=== PATIENT | male | born 1985 | race Caucasian/White ===

== ENCOUNTER 2017-06-15 14:10 | Day surgery (SDC) | payer BC, OTHER ==
[~2017-06-15 14:10] MED LIST: oxyCODONE IR 5 MG TAB PO SCH
--- NOTE | 2017-06-15 14:49 | EDPHY ---
H & P Stated Complaint: deformity l clavicle Time Seen by Provider: 06/15/17 14:49 - Personal History Current Tetanus/Diphtheria Vaccine: No - Medical/Surgical History Hx Asthma: No Hx Chronic Respiratory Disease: No Hx Diabetes: No Hx Cardiac Disease: No Hx Renal Disease: No Hx Cirrhosis: No Hx Alcoholism: No Hx HIV/AIDS: No Hx Splenectomy or Spleen Trauma: No Other PMH: sleep apnea - Social History Smoking Status: Never smoked Constitutional: Initial Vital Signs Temperature (C) 36.7 C 06/15/17 14:19 Heart Rate 84 06/15/17 14:19 Respiratory Rate 16 06/15/17 14:19 Blood Pressure 104/90 H 06/15/17 14:19 O2 Sat (%) 94 06/15/17 14:19 O2 Delivery Mode Room Air Allergies/Adverse Reactions: No Known Allergies Allergy (Unverified 06/15/17 14:19) Home Medications: Medication Instructions Recorded HYDROcodone/APAP 10325 [Big [place] 1 - 2 each PO Q4-6PRN PRN #20 tab 06/15/17 10/325] Medical Decision Making - Diagnostics Imaging: I viewed and interpreted images myself ED Course/Re-evaluation: CHIEF COMPLAINT: Left clavicle injury HISTORY OF PRESENT ILLNESS: The patient is a 31 y/o male complaining of left clavicle pain secondary to "running into a dude that was bigger than me" while playing soccer this afternoon. He has previously broken this clavicle and the right clavicle. He denies head strike, weakness, paresthesias, neck or back pain , dyspnea, or any other injuries from the impact. He is normally healthy. He has not eaten anything today. No anticoagulants. REVIEW OF SYSTEMS: A 10 point review of systems was performed and is negative with the exception of the elements mentioned in the history of present illness. PHYSICAL EXAM: HR, BP, O2 Sat, RR. Temp noted General Appearance: Alert, well hydrated, appropriate, and non-toxic appearing. Head: Atraumatic without scalp tenderness or obvious injury Eyes: Pupils equal, round, reactive to light and accommodation, EOMI, no trauma , no injection. Nose: Atraumatic, no rhinorrhea, clear. Throat: Mucus membranes moist. Neck: Supple,nontender, no lymphadenopathy. Respiratory: No retractions, no distress, no wheezes, and no accessory muscle use. Lungs are clear to auscultation bilaterally. Cardiovascular: Regular rate and rhythm, no murmurs, rubs, or gallops. Left radial pulse intact. Good capillary refill all extremities. Gastrointestinal: Abdomen is soft, nontender, non-distended, no masses, no rebound, no guarding, no peritoneal signs. Musculoskeletal: Tenting of skin over left clavicle with crepitus and tenderness, no blanching of skin or evidence of ischemia. Otherwise normal active ROM of all extremities, atraumatic. Neurological: Alert, appropriate, and interactive. The patient has non-focal cranial nerves, motor, sensory, and cerebellar exam. Skin: No rashes, good turgor, no nodules on palpation. Past medical history: Prior clavicle fractures bilaterally Past surgical history: Right clavicle repair in [place] Family history: Noncontributory Social history: Moved here from [place] last year. [employer] student. DIAGNOSTICS/PROCEDURES/CRITICAL CARE TIME: Left clavicle x-ray: comminuted fracture of left clavicle DIFFERENTIAL DIAGNOSIS: The differential diagnosis for the patient's trauma included but was not limited to left clavicle fracture, intracranial injury, long bone and pelvic bone fractures, spinal injury, intra-abdominal injury, and intra-thoracic injury. MEDICAL DECISION MAKING: This is a healthy 31 y/o male with prior clavicle injuries who presents with isolated injury to his left clavicle secondary to a collision while playing soccer this afternoon. He has tenting of the skin over his left clavicle with ecchymosis, crepitus, and tenderness, but no abrasion, laceration, evidence of open fracture or ischemia. He is neurovascularly intact. Plan to treat with [place], ibuprofen, sling, and ortho follow up. 1502: Consulted with Dr. Pacheco, orthopedist. He will take patient to surgery today and will call the OR to determine timeline. Plan for IV, labs, 1mg IV Dilaudid. NPO status maintained. Departure - Departure Disposition: [facility] Acute Clinical Impression: Fracture of clavicle, left, closed Qualifiers: Encounter type: initial encounter Clavicle location: shaft Fracture alignment: displaced Qualified Code(s): S42.022A - Displaced fracture of shaft of left clavicle, initial encounter for closed fracture Condition: Good Instructions: Clavicle Fracture (ED) Additional Instructions: 1. Take 800mg ibuprofen every 8 hours as directed for pain and inflammation over the next few days. 2. Take [place] as prescribed when needed for severe pain. This medication can make you drowsy. Do not use while driving. 3. Wear sling for splinting and comfort. Apply ice to sore areas over the next 24-48 hours. 4. Follow up with orthopedist in the next week. I recommend calling first thing tomorrow morning to schedule this appointment. 5. Return to the ED for any worsening of condition. Referrals: Angel Luis Pacheco MD [Medical Doctor] - As per Instructions Report Scribed for: Pb Cheung Report Scribed by: Victoria Bedoya Date of Report: 06/15/17 Time of Report: 14:57
[2017-06-15] MEDS ORDERED: HYDROmorphONE/DILAUDID 2 MG/ML INJ IVP ONE (15:03)
[2017-06-15 15:24] LABS: PLATELET COUNT 282 10^3/uL (150-400)
[2017-06-15] MEDS ORDERED: BUPIVACAINE/EPI 0.5% 30 ML SDV ONE (15:25)
[2017-06-15] MEDS ORDERED: ceFAZolin 2 GM/DEXTROSE 100 ML IV ONE (16:16)
[2017-06-15] MEDS ORDERED: MIDAZOLAM 2 MG/2 ML VIAL IVP ONE (16:25)
--- NOTE | 2017-06-15 16:25 | PDANEPAE ---
ANE History of Present Illness traumatic clavicle fx here for ORIF ANE Past Medical History - Cardiovascular History Hx Hypertension: No Hx Arrhythmias: No - Pulmonary History Hx Oxygen in Use at Home: No Hx Sleep Apnea: Yes - Endocrine History Hx Diabetes: No ANE Review of Systems Review of Systems: - Exercise capacity Exercise capacity: >=4 METS ANE Patient History - Allergies Allergies/Adverse Reactions: No Known Allergies Allergy (Unverified 06/15/17 14:19) - NPO status NPO Since - Liquids (Date): 06/15/17 NPO Since - Liquids (Time): 13:00 NPO Since - Solids (Date): 06/14/17 NPO Since - Solids (Time): 17:00 - Anes Hx Anes Hx: no prior problems - Smoking Hx Smoking Status: Never smoked - Alcohol Use Alcohol Use: None - Family Anes Hx Family Anes Hx: none ANE Labs/Vital Signs - Labs Result Diagrams: 06/15/17 15:10 06/15/17 15:10 - Vital Signs Blood Pressure: 104/90 Heart Rate: 84 Respiratory Rate: 16 O2 Sat (%): 94 Height: 177.8 cm Weight: 72.575 kg ANE Physical Exam - Airway Neck exam: FROM Mallampati Score: Class 2 Mouth exam: jenkins - Pulmonary Pulmonary: no respiratory distress, clear to auscultation - Cardiovascular Cardiovascular: regular rate and rhythym, no murmur, rub, or gallop - ASA Status ASA Status: II ANE Anesthesia Plan Anesthesia Plan: general endotracheal anesthesia
[2017-06-15] MEDS ORDERED: MIDAZOLAM 2 MG/2 ML VIAL ONE (16:28)
[2017-06-15] MEDS ORDERED: ceFAZolin 2 GM/SWFI 2 GM/20 ML SYR IVP ONE (16:30)
[2017-06-15] MEDS ORDERED: PROPOFOL 200 MG/20 ML VIAL ONE ×2 (16:33)
[2017-06-15] MEDS ORDERED: fentaNYL 250 MCG/5 ML INJ ONE (16:33)
--- NOTE | 2017-06-15 16:33 | GCON ---
[f rep st] CONSULTATION CONSULTATION/HISTORY AND PHYSICAL CHIEF COMPLAINT: Left shoulder. HISTORY OF PRESENT ILLNESS: Patient is a 31-year-old, who sustained a fall of his left upper extremi ty playing soccer. He is right-hand dominant. He noted immediate pain and deformity in his left cla vicle region. He has past history of a right clavicle fracture for which he underwent ORIF and a lef t clavicle fracture, which was treated nonsurgically. PAST MEDICAL HISTORY: Unremarkable. MEDICINES: He takes no medicines. ALLERGIES: No known drug allergies. SOCIAL HISTORY: Negative for tobacco use. FAMILY HISTORY: Noncontributory. PHYSICAL EXAM: GENERAL: Patient is alert and oriented x3, in mild acute distress secondary to his l eft shoulder pain. HEENT: Head is normocephalic. Pupils equal, round, reactive to light. Extraocu lar eye movements intact. NECK: Supple. No JVD or lymphadenopathy. CHEST: Clear to auscultation. HEART: Regular rate and rhythm. No murmurs or gallops. ABDOMEN: Soft, nontender, nondistended. No organomegaly. GENITAL, RECTAL AND BREAST EXAMS: Deferred. EXTREMITY EXAM: Reveals deformity a nd tenting of the skin of the left mid clavicle region. Distal neurovascular exam was grossly intact . ASSESSMENT: Left displaced clavicle fracture. PLAN: Based on the displaced nature of the fracture, it is recommended that operative treatment cons isting of open reduction, internal fixation be pursued. /[id number]/MODL
--- NOTE | 2017-06-15 16:56 | ASMTCMCOM ---
CM Note CM Note Notes: Pt presented to the ED for left clavicle deformity and pain after colliding with another player during a soccer game today. Pt has left clavicle fracture, pt to OR and have ORIF by Dr Pacheco. Per ED RN Wallace, pt's friends took pt's car keys to go move his car from soccer field parking lot to his home. Pt lives alone in [place] and recently adopted a puppy; pt's friend Ralph will scrap picker pt's keys (which are at the triage/ED registration desk) to his apartment in order to scrap picker & care for the dog until pt discharges home. Ralph will pick pt up when pt discharges. Pt's family lives in [place], pt moved here about a year ago. Pt is a [employer] student. Anticipate pt to dc home with help from friends. CM available if needs arise. Date Signed: 06/15/2017 04:56 PM Electronically Signed By:Sun Nolan RN
[2017-06-15] MEDS ORDERED: ONDANSETRON 4 MG/2 ML VIAL ONE (17:16)
[2017-06-15] MEDS ORDERED: ROCURONIUM 100 MG/10 ML VIAL ONE (17:16)
[2017-06-15] MEDS ORDERED: DEXAMETHASONE 4 MG/ML VIAL ONE (17:16)
[2017-06-15] MEDS ORDERED: LIDOCAINE 2% 100 MG/5 ML SYR ONE (17:17)
--- NOTE | 2017-06-15 18:11 | POSTOPPROG ---
Post Op Note Date of Operation: 06/15/17 Surgeon: Angel Luis Pacheco Anesthesia: GET(General Endotracheal) Pre-op Diagnosis: L Clavicle fx Post-op Diagnosis: same Procedure: ORIF L clavicle fx Inf/Abcess present in the surg proc area at time of surgery?: No EBL: Minimal
--- NOTE | 2017-06-15 18:12 | POSTANESTH ---
Post Anesthetic Evaluation Cardiovascular Status: Normal, Stable, Similar to Pre-Op Cond Respiratory Status: Normal, Stable, Similar to Pre-op Cond. Level of Consciousness/Mental Status: Can Participate in Eval, Alert and Oriented Pain Control: Adequate, Prn Tx Ordered Nausea/Vomiting Control: Adequate, Prn Tx Ordered Complications Possibly Related to Anesthesia: None Noted
[2017-06-15] MEDS ORDERED: fentaNYL 100 MCG/2 ML INJ IVP PRN (18:13)
[2017-06-15] MEDS ORDERED: HYDROCODONE/APAP 5/325 TAB PO PRN (18:13)
[2017-06-15] MEDS ORDERED: NALOXONE HCL 0.4 MG/ML INJ IVP PRN (18:13)
[2017-06-15] MEDS ORDERED: HYDROmorphONE/DILAUDID 2 MG/ML INJ IVP PRN (18:13)
[2017-06-15] MEDS ORDERED: ONDANSETRON 4 MG/2 ML VIAL IVP PRN (18:13)
[2017-06-15] MEDS ORDERED: ACETAMINOPHEN 500 MG TAB PO PRN (18:13)
[2017-06-15] MEDS ORDERED: OXYCODONE/APAP 5/325 TAB PO PRN (18:13)
[2017-06-15 18:26] VITALS: TEMP 98.4
[2017-06-15 18:48] VITALS: RESP 16
[2017-06-15 19:11] VITALS: O2SAT 93
[2017-06-15 19:37] VITALS: BP 142/88; PULSE 88
--- NOTE | 2017-06-15 20:49 | GOP ---
[f rep st] OPERATIVE REPORT DATE OF OPERATION: 06/15/2017 SURGEON: Angel Luis Pacheco MD ANESTHESIA: General. PREOPERATIVE DIAGNOSIS: Left clavicle fracture. POSTOPERATIVE DIAGNOSIS: Left clavicle fracture. PROCEDURE PERFORMED: 1. Open reduction, internal fixation, left clavicle fracture. 2. Intraoperative use of fluoroscopy. FINDINGS: ESTIMATED BLOOD LOSS: Minimal. INDICATIONS: The patient is a 31-year-old right-hand dominant man who sustained a fall playing [employer] resulting in a left clavicle fracture. Based on the displaced nature of his injury, it was recomme nded that operative treatment consisting of open reduction, internal fixation be pursued. The patien t acknowledged he understood the potential risks of the operation, including but not limited to, blee ding, infection, neurovascular damage, limb loss, limited limb function, malunion, nonunion, pain or functional limitations despite operative treatment, and anesthetic risks. He acknowledged he underst ood the potential risks, planned procedure, and postoperative plan well, had all questions answered p rior to surgery. He gave his consent for the operative procedure. DESCRIPTION OF PROCEDURE: The patient was brought to the operating room after IV antibiotics had bee n administered. He was placed in a supine position where general anesthetic was administered. The h ead of the bed was elevated slightly into a modified beach-chair position. The left upper extremity and left shoulder girdle were prepped and draped in standard sterile fashion. An oblique incision wa s made along the inferior border of the clavicle. Skin and subcutaneous tissue were sharply incised. Dissection was carried with the electrocautery unit through the preclavicular fascia reflecting the muscle off the proximal and distal aspects of the anterior superior portion of the clavicle. Limite d muscle and periosteal reflection were performed. The butterfly fragment was reduced to the distal segment and provisionally held with a 2-point reduction clamp. A 2.4 mm cortical screw was placed in lag fashion across this. An 8-hole anterior superior clavicle plate ([employer]ynthe[employer]) was contoured to fit the patient's clavicle. Plate was then fixed to the distal segment with a 3.5 mm bicortical screw. The fracture was then reduced with a 2-point reduction clamp and secured proximally with initially 3. 5 mm bicortical screw. 3.5 mm bicortical screws were placed in the most proximal and distal holes wi th 3.5 mm cortical locking screws placed between the other 3.5 mm screws both proximally and distally . Fluoroscopic views confirmed favorable reduction and hardware placement. Attention was directed t oward closure. Fluoroscopic views were obtained which revealed interval reduction, hardware placemen t. The deep fascial layer was closed with 2-0 Vicryl suture in interrupted fashion. Subcutaneous ti ssue closed with 3-0 Vicryl suture in interrupted fashion. Skin closed with 4-0 nylon running stitch . 0.5% Marcaine with epinephrine was injected in the wound sites. The wounds were dressed with ster ile Adaptic, 4 x 4, and Opsite. Patient tolerated the procedure well and was taken to the recovery r oom extubated, in stable condition postoperatively. All sponge, needle, and instrument counts were r eported as being correct. DRAINS: None. COMPLICATIONS: None. PLAN: The patient will be discharged home, nonweightbearing on his operative extremity. /[id number]/MODL
== END 2017-06-15 19:31 | disposition home or self-care (01) ==
LOC: FSGY 16:22
PROVIDERS: ATTEND Orthopaedic Surgery Foot and Ankle Surgery
PROC: 0PSB04Z Reposition Left Clavicle with Internal Fixation Device, Open Approach (ICD-10-PCS; principal; 2017-06-15 16:15)
DX: S42.022A Displaced fracture of shaft of left clavicle, initial encounter for closed fracture (principal); Y04.2XXA Assault by strike against or bumped into by another person, initial encounter; Y93.66 Activity, soccer; Y99.9 Unspecified external cause status; Y92.9 Unspecified place or not applicable
CPT/HCPCS: 96374; C1713; J0690; J1100; J1170; J2001; J2250; J2405; J2704; J3010

== ENCOUNTER 2018-08-18 13:48 | Emergency (ER) | payer OTHER ==
--- NOTE | 2018-08-18 14:11 | EDPHY ---
H & P Time Seen by Provider: 08/18/18 14:10 HPI/ROS: CHIEF COMPLAINT: Left index finger cellulitis HISTORY OF PRESENT ILLNESS: The patient presents to the ED with cellulitis to the dorsal aspect of his left finger and mild lymphangitis streaking in the forearm. The patient sustained a small bruise to the knuckle several days ago. The patient denies any pain in the joint. He denies prior history of soft tissue infection. He denies significant past medical history. The patient has no complaints of acute fever, numbness or weakness. The patient reports only mild pain with full flexion of the finger. The patient was seen at urgent care and referred to the ED for further evaluation. REVIEW OF SYSTEMS: A comprehensive 10 point review of systems is otherwise negative aside from elements mentioned in the history of present illness. Source: Patient Exam Limitations: No limitations - Medical/Surgical History Hx Asthma: No Hx Chronic Respiratory Disease: No Hx Diabetes: No Hx Cardiac Disease: No Hx Renal Disease: No Hx Cirrhosis: No Hx Alcoholism: No Hx HIV/AIDS: No Hx Splenectomy or Spleen Trauma: No Other PMH: sleep apnea - Social History Smoking Status: Never smoked - Physical Exam Exam: General Appearance: Alert, no distress Eyes: Pupils equal and round no pallor or injection ENT, Mouth: Mucous membranes moist Respiratory: There are no retractions, lungs are clear to auscultation Cardiovascular: Regular rate and rhythm Gastrointestinal: Abdomen is soft and nontender, no masses, bowel sounds normal Neurological: 5/5 strength noted all 4 extremities, normal sensory exam Skin: Dorsal aspect of the left index finger does have a small hematoma which is not fluctuant, there is mild surrounding erythema on the dorsal aspect of the finger. There is mild lymphangitis extending past the wrist crease to the forearm. The patient has no clinical evidence of septic arthritis. Musculoskeletal: Neck is supple nontender Extremities: symmetrical, full range of motion Constitutional: Initial Vital Signs Temperature (C) 36.6 C 08/18/18 14:10 Heart Rate 79 08/18/18 14:10 Respiratory Rate 16 08/18/18 14:10 Blood Pressure 158/109 H 08/18/18 14:10 O2 Sat (%) 94 08/18/18 14:10 O2 Delivery Mode Room Air Allergies/Adverse Reactions: No Known Allergies Allergy (Unverified 06/15/17 14:19) Home Medications: Medication Instructions Recorded HYDROcodone/APAP 10/325 [[place] 1 - 2 each PO Q4-6PRN PRN #20 tab 06/15/17 10/325] Cephalexin [Keflex] 500 mg PO QID #40 cap 08/18/18 Medical Decision Making ED Course/Re-evaluation: Patient presents to the ED with non fluctuance cellulitis involving the left index finger. There is no clinical evidence of septic arthritis or flexor tenosynovitis. The patient had an IV established. He received 1 g of IV ceftriaxone. The patient will be discharged with instructions to return to the emergency department tomorrow for wound check. He will begin taking Keflex 500 mg 4 times a day. The patient should return sooner for markedly increased pain, redness or swelling Differential Diagnosis: Differential diagnosis considered includes cellulitis, lymphangitis, septic arthritis - Data Points Medications Given: Discontinued Medications Ceftriaxone Sodium/Dextrose (Rocephin 1 Gm (Premix)) 50 mls @ 100 mls/hr IV EDNOW ONE PRN Reason: Protocol Stop: 08/18/18 14:43 Last Admin: 08/18/18 14:27 Dose: 50 mls Departure - Departure Disposition: Home, Routine, Self-Care Clinical Impression: Cellulitis Qualifiers: Site of cellulitis of extremity: upper extremity Laterality: left Condition: Good Instructions: Cellulitis (ED) Additional Instructions: 1. Please take antibiotics as directed for next 10 days 2. Return to the emergency department tomorrow for a recheck. You may be given additional dose of IV antibiotics. 3. If you have marked improvement of your symptoms there is no need to return to the emergency department tomorrow and simply continue her antibiotics as prescribed. 4. Please return to the ED sooner for markedly worsening symptoms, high fever, increasing pain, increasing swelling or other concerns
[2018-08-18 15:25] VITALS: BP 156/106
== END 2018-08-18 15:24 | disposition home or self-care (01) ==
DX: L03.012 Cellulitis of left finger (principal)
CPT/HCPCS: 96365; J0696